=== PATIENT | female | born 1935 | race American Indian/Alaskan Native ===

== ENCOUNTER 2025-04-18 19:06 | Inpatient (IN) | payer OTHER ==
[~2025-04-18] VITALS: Ht 157.5 cm; Wt 95.7 kg
[2025-04-18] MEDS ORDERED: ANASTROZOLE1 MG PO (19:47)
[2025-04-18] MEDS ORDERED: TOPROL XL25 M1 PO (19:48)
[2025-04-18] MEDS ORDERED: CETIRIZINE-PSE1 EACH PO (19:48)
[2025-04-18] MEDS ORDERED: OMEPRAZOLE MAGN20 MG PO (19:48)
[2025-04-18] MEDS ORDERED: DOCUSATE SODIU MC (19:48)
[2025-04-18] MEDS ORDERED: PRESERVISION A1 EAC1 PO (19:49)
[2025-04-18] MEDS ORDERED: CALCIUM CARBON600 MG PO (19:49)
--- NOTE | 2025-04-18 20:02 | NUR ---
PACIENTE ALERTA Y ORINETADA X3 QUIEN REFIERE VENIR POR CELULITIS EN HOWIENA KEVEN. SE OBSERVA AREA ENRROJECIDA Y CALIENTE.
[2025-04-18] MEDS ORDERED: CEFTRIAXONE SODIUM 2,000 MG VIAL IV STA (20:21)
[2025-04-18] MEDS ORDERED: 0.9 % SODIUM CHLORIDE 500 ML IV STA (20:22)
--- NOTE | 2025-04-18 20:45 | NUR ---
SE ORIENTA A PACIENTE SOBRE TRATAMIENTO MEDICO, REFIERE ENTENDER. SE REALIZAN MUESTRAS DE LABORATORIO BAJO MEDIDAS ASEPTICAS. SE ADMINISTRAN MEDICAMENTOS STEFAN ORDEN MEDICA. SE COORDINA YUNIOR X. PACIENTE MANEJADA POR .
[2025-04-18 20:58] LABS: BASO % 0.2 % (0.1-1.2); EOS # 0.00 (0.04-0.54); EOS % 0.0 % (0.7-7.0); LYMPH # 1.08 (1.18-3.74); LYMPH % 7.5 % (19.3-53.1); MEAN PLATELET VOLUME 9.60 fl (9.4-12.4); MONO # 0.52 (0.24-0.82); MONO % 3.6 % (4.7-12.5); NEUT # 12.62 (1.56-6.13); NEUT % 87.3 % (34.0-71.1); RED CELL DISTRIBUTION WIDTH 14.4 % (11.6-14.4)
[2025-04-18 21:04] LABS: ERYTHROCYTE SEDIMENTATION RATE 34 mm/hr (0-30)
[2025-04-18 21:13] LABS: INR 1.22
[2025-04-18 21:24] LABS: ALT/SGPT 13.0 U/L (12-78); AST/SGOT 11.0 U/L (15-37); BILIRUBIN TOTAL 0.82 mg/dL (0.3-1.2); BUN CREA RATIO 25.0 (7.0-25.0); CREATININE SERUM 0.75 mg/dL (0.55-1.02); GFR 72.93; GLOBULINA 3.8 G/DL (2.4-3.5); GLUCOSE FASTING 156.0 mg/dL (65-100); OSMOLALITY SERUM 285.0 MOSM/KG (275-295)
[2025-04-19 00:27] LABS: URINE APPEARANCE Cloudy; URINE BILIRRUBIN Negative (NEGATIVE); URINE BLOOD Negative; URINE COLOR Yellow; URINE GLUCOSE Negative (NEGATIVE); URINE KETONE Negative (NEGATIVE); URINE LEUKOCYTE Small; URINE NITRATE Negative; URINE PROTEIN 30 (NEGATIVE); URINE UROBILINOGEN 0.2 E.U./dl
[2025-04-19] MEDS ORDERED: 0.9 % SODIUM CHLORIDE 1,000 ML IV SCH (00:30)
[2025-04-19] MEDS ORDERED: ACETAMINOPHEN 325 MG TABLET PO PRN (00:30)
[2025-04-19] MEDS ORDERED: ONDANSETRON HCL 4 MG in 0.9 % SODIUM CHLORIDE 50 ML IV PRN (00:30)
[2025-04-19 00:31] LABS: URINE EPITHELIAL CELLS 18.9 uL (0.0-38.8); URINE RBC 7.9 uL (0.0-20.8); URINE WBC 121.7 uL (0.0-23.2)
[2025-04-19 00:52] LABS: TYPE CELLS SQUAMOUS; URINE BACTERIA > 9821.5 uL (0.0-1933); URINE CAST 0.00 uL (0.0-1.40)
[2025-04-19 08:12] VITALS: BP 129/73; O2SAT 95
[2025-04-19] MEDS ORDERED: CETIRIZINE HCL 10 MG TABLET PO SCH (09:00)
[2025-04-19] MEDS ORDERED: DOCUSATE SODIUM 100MG CAP PO SCH (09:00)
[2025-04-19] MEDS ORDERED: METOPROLOL SUCCINATE 25 MG TAB.SR.24H PO SCH (09:00)
[2025-04-19] MEDS ORDERED: CEFTRIAXONE SODIUM 2,000 MG in 0.9 % SODIUM CHLORIDE 100 ML IV SCH (09:00)
[2025-04-19] MEDS ORDERED: LACTOBACILLUS ACIDOPHILUS 1 CAP CAP PO SCH (09:10)
[2025-04-19] MEDS ORDERED: ACETAMINOPHEN 500 MG GEL..CAP PO PRN (09:15)
[2025-04-19 15:00] VITALS: BP 119/80; O2SAT 99
[2025-04-19] MEDS ORDERED: CLOTRIMAZOLE/BETAMETHASONE DIP 15 GM TUBE TOP SCH (17:15)
[2025-04-19] MEDS ORDERED: PIPERACILLIN/TAZOBACTAM SODIUM 3.375 GM in DEXTROSE 5 % IN WATER 100 ML IV SCH (18:00)
[2025-04-19 20:49] LABS: URINE APPEARANCE Clear; URINE BILIRRUBIN Negative (NEGATIVE); URINE BLOOD Negative; URINE COLOR Yellow; URINE GLUCOSE Negative (NEGATIVE); URINE KETONE Negative (NEGATIVE); URINE LEUKOCYTE Trace; URINE NITRATE Negative; URINE PROTEIN Negative (NEGATIVE); URINE UROBILINOGEN 0.2 E.U./dl
[2025-04-19 20:53] LABS: URINE BACTERIA 16.7 uL (0.0-1933); URINE EPITHELIAL CELLS 6.1 uL (0.0-38.8); URINE RBC 6.0 uL (0.0-20.8); URINE WBC 9.9 uL (0.0-23.2)
[2025-04-19] MEDS ORDERED: PANTOPRAZOLE SODIUM 40 MG/VIAL VIAL IV SCH (21:00)
[2025-04-19] MEDS ORDERED: VANCOMYCIN HCL 1,000 MG VIAL IV SCH (21:00)
[2025-04-19 21:02] LABS: URINE CAST 0.14 uL (0.0-1.40)
[2025-04-20] VITALS: BP 186/84; O2SAT 98
[2025-04-20] MEDS ORDERED: ENALAPRILAT DIHYDRATE 1.25 MG/ML VIAL IV PRN (01:45)
[2025-04-20 06:54] LABS: BASO % 0.2 % (0.1-1.2); EOS # 0.09 (0.04-0.54); EOS % 1.1 % (0.7-7.0); LYMPH # 0.86 (1.18-3.74); LYMPH % 10.4 % (19.3-53.1); MEAN PLATELET VOLUME 9.90 fl (9.4-12.4); MONO # 0.27 (0.24-0.82); MONO % 3.3 % (4.7-12.5); NEUT # 6.97 (1.56-6.13); NEUT % 84.2 % (34.0-71.1); RED CELL DISTRIBUTION WIDTH 14.5 % (11.6-14.4)
[2025-04-20 07:37] LABS: ALT/SGPT 10.0 U/L (12-78); AST/SGOT 9.0 U/L (15-37); BILIRUBIN TOTAL 0.42 mg/dL (0.3-1.2); BUN CREA RATIO 17.0 (7.0-25.0); CREATININE SERUM 0.52 mg/dL (0.55-1.02); GFR 111.29; GLOBULINA 2.9 G/DL (2.4-3.5); GLUCOSE FASTING 137.0 mg/dL (65-100); OSMOLALITY SERUM 290.0 MOSM/KG (275-295)
[2025-04-20 08:24] VITALS: BP 143/84; O2SAT 98
[2025-04-20] MEDS ORDERED: CLOTRIMAZOLE/BETAMETHASONE DIP 15 GM TUBE TOP SCH (09:00)
[2025-04-20] MEDS ORDERED: VANCOMYCIN HCL 5 MG/ML REDILUIDO IV SCH (09:00)
[2025-04-20] MEDS ORDERED: ENOXAPARIN SODIUM 40 MG/0.4 ML SYRINGE SUBCUTANEO SCH (09:00)
[2025-04-20 16:47] VITALS: BP 141/53; O2SAT 95
[2025-04-21 00:30] VITALS: BP 145/78; O2SAT 97
[2025-04-21 08:00] VITALS: BP 134/77; O2SAT 98
[2025-04-21] MEDS ORDERED: CETIRIZINE HCL 10 MG TABLET PO SCH (09:00)
[2025-04-21 16:00] VITALS: BP 187/75; O2SAT 95
[2025-04-21 23:52] VITALS: BP 147/83; O2SAT 96
[2025-04-22 08:00] VITALS: BP 160/74; O2SAT 97
[2025-04-22 16:28] VITALS: BP 160/64; O2SAT 98
[2025-04-23 00:46] VITALS: BP 151/69; O2SAT 97
[2025-04-23 08:00] VITALS: BP 163/90; O2SAT 98
[2025-04-23 08:35] LABS: BASO % 0.5 % (0.1-1.2); EOS # 0.17 (0.04-0.54); EOS % 2.7 % (0.7-7.0); LYMPH # 0.81 (1.18-3.74); LYMPH % 13.0 % (19.3-53.1); MEAN PLATELET VOLUME 9.90 fl (9.4-12.4); MONO # 0.55 (0.24-0.82); MONO % 8.9 % (4.7-12.5); NEUT # 4.62 (1.56-6.13); NEUT % 74.4 % (34.0-71.1); RED CELL DISTRIBUTION WIDTH 14.0 % (11.6-14.4)
[2025-04-23 09:34] LABS: BUN CREA RATIO 8.0 (7.0-25.0); CREATININE SERUM 1.71 mg/dL (0.55-1.02); GFR 28.17; GLUCOSE FASTING 146.0 mg/dL (65-100); OSMOLALITY SERUM 297.0 MOSM/KG (275-295)
[2025-04-23 18:00] VITALS: BP 124/80; O2SAT 95
[2025-04-23] MEDS ORDERED: PIPERACILLIN/TAZOBACTAM SODIUM 2.25 GM in DEXTROSE 5 % IN WATER 50 ML IV SCH (18:00)
[2025-04-24 01:50] VITALS: BP 145/53; O2SAT 96
[2025-04-24 08:00] VITALS: BP 162/82; O2SAT 97
[2025-04-24 08:46] LABS: ALT/SGPT 9.0 U/L (12-78); AST/SGOT 15.0 U/L (15-37); BILIRUBIN TOTAL 0.39 mg/dL (0.3-1.2); BUN CREA RATIO 7.0 (7.0-25.0); CREATININE SERUM 2.02 mg/dL (0.55-1.02); GFR 23.24; GLOBULINA 3.1 G/DL (2.4-3.5); GLUCOSE FASTING 146.0 mg/dL (65-100); OSMOLALITY SERUM 299.0 MOSM/KG (275-295)
[2025-04-24 17:56] VITALS: BP 149/75; O2SAT 98
[2025-04-25 01:12] VITALS: BP 150/64; O2SAT 99
[2025-04-25 07:54] LABS: BASO % 0.4 % (0.1-1.2); EOS # 0.17 (0.04-0.54); EOS % 3.0 % (0.7-7.0); LYMPH # 0.74 (1.18-3.74); LYMPH % 13.0 % (19.3-53.1); MEAN PLATELET VOLUME 10.20 fl (9.4-12.4); MONO # 0.36 (0.24-0.82); MONO % 6.3 % (4.7-12.5); NEUT # 4.38 (1.56-6.13); NEUT % 76.6 % (34.0-71.1); RED CELL DISTRIBUTION WIDTH 14.0 % (11.6-14.4)
[2025-04-25 08:05] LABS: ALT/SGPT 10.0 U/L (12-78); AST/SGOT 13.0 U/L (15-37); BILIRUBIN TOTAL 0.46 mg/dL (0.3-1.2); BUN CREA RATIO 8.0 (7.0-25.0); CREATININE SERUM 1.97 mg/dL (0.55-1.02); GFR 23.93; GLOBULINA 3.2 G/DL (2.4-3.5); GLUCOSE FASTING 140.0 mg/dL (65-100); OSMOLALITY SERUM 298.0 MOSM/KG (275-295)
[2025-04-25 17:21] VITALS: BP 197/69; O2SAT 97
[2025-04-26 00:30] VITALS: BP 152/78; O2SAT 97
[2025-04-26 08:37] VITALS: BP 184/82; O2SAT 97
[2025-04-26] MEDS ORDERED: hydrALAZINE HCL 20 MG VIAL IV PRN (11:00)
[2025-04-26] MEDS ORDERED: DEXTROSE 5 %-0.45 % SOD CHLORD 1,000 ML IV SCH (11:15)
[2025-04-26] MEDS ORDERED: POTASSIUM BICARBONATE/CIT AC 25 MEQ TABLET.EFF PO SCH (13:00)
[2025-04-26 16:00] VITALS: BP 191/80; O2SAT 98
[2025-04-26] MEDS ORDERED: AMLODIPINE BESYLATE 10 MG TABLET PO SCH (19:02)
[2025-04-26] MEDS ORDERED: AMLODIPINE BESYLATE 10 MG TABLET PO STA (19:02)
[2025-04-26] MEDS ORDERED: AMLODIPINE BESYLATE 10 MG TABLET PO ONE (19:57)
[2025-04-27 01:08] VITALS: BP 149/71; O2SAT 98
[2025-04-27 07:42] LABS: BUN CREA RATIO 8.0 (7.0-25.0); CREATININE SERUM 1.8 mg/dL (0.55-1.02); GFR 26.55; GLUCOSE FASTING 140.0 mg/dL (65-100)
[2025-04-27 07:57] LABS: OSMOLALITY SERUM 303.0 MOSM/KG (275-295)
[2025-04-27] MEDS ORDERED: POTASSIUM CHLORIDE IN WATER 100 ML IV NR (10:00)
[2025-04-27] MEDS ORDERED: POTASSIUM CHLORIDE IN WATER 40 MEQ/100 ML PIGGYBAG IV NR (16:00)
[2025-04-27 17:42] VITALS: BP 171/78; O2SAT 98
[2025-04-28 02:07] VITALS: BP 152/76; O2SAT 98
[2025-04-28 14:27] LABS: ALT/SGPT 10.0 U/L (12-78); AST/SGOT 14.0 U/L (15-37); BILIRUBIN TOTAL 0.27 mg/dL (0.3-1.2); BUN CREA RATIO 8.0 (7.0-25.0); CREATININE SERUM 1.75 mg/dL (0.55-1.02); GFR 27.43; GLOBULINA 3.4 G/DL (2.4-3.5); GLUCOSE FASTING 172.0 mg/dL (65-100); OSMOLALITY SERUM 299.0 MOSM/KG (275-295)
[2025-04-28 16:34] VITALS: BP 99/68; O2SAT 98
[2025-04-29 00:33] VITALS: BP 107/65; O2SAT 96
[2025-04-29 08:00] VITALS: BP 103/70; O2SAT 98
[2025-04-29 16:47] VITALS: BP 157/84; O2SAT 98
[2025-04-30 00:27] VITALS: BP 144/68; O2SAT 94
[2025-04-30 11:44] LABS: BASO % 0.6 % (0.1-1.2); EOS # 0.14 (0.04-0.54); EOS % 2.0 % (0.7-7.0); LYMPH # 0.91 (1.18-3.74); LYMPH % 12.9 % (19.3-53.1); MEAN PLATELET VOLUME 10.20 fl (9.4-12.4); MONO # 0.47 (0.24-0.82); MONO % 6.7 % (4.7-12.5); NEUT # 5.47 (1.56-6.13); NEUT % 77.5 % (34.0-71.1); RED CELL DISTRIBUTION WIDTH 13.9 % (11.6-14.4)
[2025-04-30 12:01] VITALS: BP 155/78; O2SAT 99
[2025-04-30 12:03] LABS: BUN CREA RATIO 9.0 (7.0-25.0); CREATININE SERUM 1.76 mg/dL (0.55-1.02); GFR 27.25; GLUCOSE FASTING 151.0 mg/dL (65-100)
[2025-04-30 12:08] LABS: OSMOLALITY SERUM 302.0 MOSM/KG (275-295)
[2025-04-30] MEDS ORDERED: POTASSIUM CHLORIDE IN WATER 40 MEQ/100 ML PIGGYBAG IV SCH (13:00)
[2025-04-30] MEDS ORDERED: POTASSIUM CHLORIDE 10 MEQ CAPSULE PO SCH (17:00)
[2025-04-30] MEDS ORDERED: DEXTROSE 5 % IN WATER 1,000 ML IV SCH (17:45)
[2025-04-30] MEDS ORDERED: SPIRONOLACTONE 25 MG TABLET PO NR (17:45)
[2025-04-30 18:04] VITALS: BP 153/71; O2SAT 98
[2025-04-30] MEDS ORDERED: POTASSIUM BICARBONATE/CIT AC 25 MEQ TABLET.EFF PO SCH (21:00)
[2025-05-01 00:57] VITALS: BP 169/77; O2SAT 98
[2025-05-01 07:44] VITALS: BP 168/84; O2SAT 98
[2025-05-01 08:10] LABS: BUN CREA RATIO 10.0 (7.0-25.0); CREATININE SERUM 1.58 mg/dL (0.55-1.02); GFR 30.86; GLUCOSE FASTING 140.0 mg/dL (65-100); OSMOLALITY SERUM 300.0 MOSM/KG (275-295)
[2025-05-01 16:00] VITALS: BP 140/80; O2SAT 99
[2025-05-01] MEDS ORDERED: TAMSULOSIN HCL 0.4 MG CAP PO SCH (17:00)
[2025-05-02 00:30] VITALS: BP 117/82; O2SAT 95
[2025-05-02 08:16] VITALS: BP 158/73; O2SAT 99
== END 2025-05-02 15:32 | disposition home or self-care (01) | DRG 603 ==
LOC: ER 19:06 → SURH 04-19 00:58
PROVIDERS: General Practice; Internal Medicine; Internal Medicine Infectious Disease; Internal Medicine Nephrology; ADMIT Internal Medicine; ATTEND Internal Medicine
PROC: B54BZZZ Ultrasonography of Right Lower Extremity Veins (ICD-10-PCS; principal; 2025-04-19)
PROC: BT4JZZZ Ultrasonography of Kidneys and Bladder (ICD-10-PCS; 2025-04-24)
DX: L03.115 Cellulitis of right lower limb (principal); N17.9 Acute kidney failure, unspecified; E87.0 Hyperosmolality and hypernatremia; D69.6 Thrombocytopenia, unspecified